=== PATIENT | male | born 1985 | race Caucasian/White ===

== ENCOUNTER 2016-09-26 02:42 | Emergency (ER) | payer OTHER ==
[~2016-09-26] VITALS: Ht 188 cm; Wt 129.0 kg
[2016-09-26 02:48] VITALS: O2SAT 94; Ht 188 cm; Wt 129.0 kg
--- NOTE | 2016-09-26 03:01 | EMERGENCY ROOM VISIT NOTE ---
History Report prepared by Joseeibshaun: Quique Owen Under the Supervision of: Dr. Manda Cole M.D. First contact with patient: 02:56 Chief Complaint: ALCOHOL OVERDOSE Stated Complaint: alcohol Nursing Triage Summary: pt was found outside in stairwell [address] out in the rain passed out, pt became combative with police then he was tasered to left flank area. pt cooperative at this time, pt vomited after arrival History of Present Illness The patient is a 31 year old male who presents to the Emergency Room with an acute alcohol overdose that occurred prior to arrival. Per nursing notes, the patient was [place]. The patient was reportedly combative with police and ended up being tased twice. He vomited upon arrival to the ED. The patient is now asleep. History is limited secondary to alcohol intoxication. Source of History: nursing staff History Limited By: intoxication Onset: prior to arrival Position: other (global) Quality: other (alcohol overdose) Timing: other (acute) Associated Symptoms: + vomiting Review of Systems ROS is limited secondary to alcohol intoxication. Past Medical & Surgical Medical Problems: (1) No known problems Family History Patient reports no known family medical history. Social History Smoking Status: Never Smoker Alcohol Use: occasionally Marital Status: single Current/Historical Medications No Active Prescriptions or Reported Meds Allergies Coded Allergies: Cephalexin (Unverified Allergy, Unknown, unknown, 09/26/16) Physical Exam Vital Signs Date Time Temp Pulse Resp B/P (MAP) Pulse Ox O2 Delivery O2 Flow Rate FiO2 09/26/16 06:36 100 24 126/80 93 Room Air 09/26/16 05:39 78 10 106/20 100 Nasal Cannula 2.5 09/26/16 04:49 88 16 112/63 93 Free Flow/[place] 4.0 09/26/16 04:35 36.6 09/26/16 04:07 96 16 113/53 92 Room Air 09/26/16 02:54 130 09/26/16 02:48 94 Room Air 09/26/16 02:48 124 17 94/76 94 Room Air Physical Exam Vital signs reviewed. General: Odor of EtOH in the breath, disheveled 31-year-old male. No signs of trauma. HEENT: Mild scleral injection bilaterally, PERRLA, neck supple, dry mucous membranes. Cardiovascular: Regular rate and rhythm, no extra sounds. Pulmonary: Clear to auscultation bilaterally, normal work of breathing. Abdomen: Soft, nontender, nondistended, positive bowel sounds. Musculoskeletal: Upper and lower extremities atraumatic, no peripheral edema Skin: Warm, dry, no rash. Taser forbes to the left flank, no other significant signs of trauma. Neurologic: Patient is fairly unresponsive to verbal stimuli. Medical Decision & Procedures ER Provider Diagnostic Interpretation: Radiology results as stated below per my review and radiologist interpretation: CT Head: No evidence acute intracranial abnormality or skull fracture. Radiologist: Joan Mead MD form [facility] Results Test 09/26/16 03:44 Ethyl Alcohol mg/dL 257.0 mg/dl (0-3) Laboratory results per my review. ED Course 0256: Past medical records reviewed. The patient was evaluated in room A9b. A complete history and physical examination was performed. 0628: The patient was gone when nursing went to check on him. Police notified. They are bringing him back. 0634: The patient is back in the ED. He has a sober girlfriend that will be contacted to pick him up. Medical Decision Differential Diagnosis: The differential diagnosis of the patient's presentation includes alcohol ingestion, illicit drug use, trauma, and dehydration. Medication Reconciliation: I attest that I have personally reviewed the patient' s current medication list. Blood Pressure Screening: Patient was found to have normal blood pressure on screening and does not require follow-up. This patient was evaluated and appeared to be in no distress. Patient was placed on aspiration precautions as well as the hospital monitor. He did vomit several times in the emergency department. Patient's blood alcohol level is 257. He was observed for several hours. CT scan of the head was performed due to the need for a taser, his relatively unresponsive state and vomiting currently. This study was negative. The patient did walk out of the front of the emergency department. Police were notified and the patient was apprehended a short distance from the hospital. Patient was discharged in the care of a friend. Patient will return to the ER for worsening of symptoms or any medical concerns. Impression Primary Impression: Alcohol use with intoxication Scribe Attestation The scribe's documentation has been prepared under my direction and personally reviewed by me in its entirety. I confirm that the note above accurately reflects all work, treatment, procedures, and medical decision making performed by me. Departure Information Dispostion Home / Self-Care Prescriptions No Active Prescriptions or Reported Meds Forms HOME CARE DOCUMENTATION FORM, IMPORTANT VISIT INFORMATION Patient Instructions My [facility] Additional Instructions Diagnosis: Alcohol intoxication Drink plenty of clear liquids, such as water or Gatorade. Tylenol 650 mg every 6 hours as needed for pain. Avoid excessive alcohol consumption. Return to emergency for worsening of symptoms or medical concerns.
[2016-09-26 04:35] VITALS: TEMP 36.6
--- NOTE | 2016-09-26 06:55 | DIAGNOSTIC IMAGING REPORT ---
CT SCAN OF THE BRAIN WITHOUT IV CONTRAST CLINICAL HISTORY: Change in mental status. Intoxication. COMPARISON STUDY: No priors. TECHNIQUE: Unenhanced axial CT scan of the brain is performed from the vertex to the skull base. Automated dose control exposure was utilized. CT DOSE: 537.48 mGy.cm FINDINGS: Brain parenchyma: The brain parenchyma is normal in appearance. There is no hemorrhage, mass effect, or evidence of acute territorial ischemia by CT criteria. Wilson-white matter is preserved. No extra-axial fluid collection is seen. Ventricles, sulci, cisterns: Normal in configuration. Intracranial vasculature: The visualized intracranial vasculature at the skull base is normal in appearance. Calvarium: There is no depressed calvarial fracture. Sinuses and mastoids: The visualized paranasal sinuses are clear. The mastoid air cells are well pneumatized. Orbits: The bony orbits are grossly intact. IMPRESSION: No acute intracranial abnormality. Electronically signed by: Chele Velazquez M.D. 09/26/2016 6:54 AM Dictated Date/Time: 09/26/2016 6:52 AM
[2016-09-26 08:15] VITALS: BP 123/89; PULSE 102; O2SAT 94
== END 2016-09-26 08:20 | disposition home or self-care (01) ==
LOC: EDBD 02:42 → C.EDA 02:44
DX: F10.929 Alcohol use, unspecified with intoxication, unspecified (principal); Y90.8 Blood alcohol level of 240 mg/100 ml or more